=== PATIENT | female | born 1950 | race Caucasian/White ===

== ENCOUNTER 2016-08-20 20:04 | Emergency (ER) | payer MEDICARE, OTHER ==
[~2016-08-20] VITALS: Ht 167.6 cm; Wt 78.6 kg
[~2016-08-20 20:04] MED LIST: ASAEC PO; CIPR250T3 PO; CITA40TA PO; ESTR1TAB28 PO; PRI20 PO; PRO25 PO; TRAZ-146 PO
[2016-08-20 20:08] VITALS: BP 129/57; PULSE 75; RESP 16; O2SAT 94
--- NOTE | 2016-08-20 20:15 | ED.REPORT ---
HPI-General Illness Date of Service Aug 20, 2016 ED Provider: Luis Jernigan MD Pt is a 66 y/o female w/ a hx of DM presenting to the ED via EMS w/ her son due to an episode of near-syncope onset about 18:00 today. The patient felt lightheaded while bringing groceries into her house today and sat down and noticed that her BP was 75/60 with a heart rate of 110. She experienced associated nausea, dizziness, and bilateral hand numbness during the event. Pt denies CP, SOB, speech or vision changes, confusion, vomiting, palpitations, focal numbness or weakness. She has been having 5-6 episodes daily for 1 month and reports that she has had similar mild episodes infrequently for up to 15 years. These episodes normally last 15 minutes but the episode today lasted 45 minutes. She denies new medications. She is scheduled to see a steel cutter in August. The patient was admitted for a similar episode 2 years ago at which time a complete workup was reportedly negative. Nursing Notes Stated Complaint: NEAR SYNCOPE Chief Complaint: General Complaint Nursing Notes Reviewed: Yes Allergies: Coded Allergies: meperidine HCl (Verified Allergy, Severe, unknown, 10/30/10) phenazopyridine (Verified Adverse Reaction, Intermediate, vomiting, ) Uncoded Allergies: Phenazopyridine (Adverse Reaction, Unknown, 12/23/04) EMESIS Scheduled Aspirin-Expunged Drug, Do Not Renew! (Aspirin EC-Expunged Drug, Do Not Renew!) 325 Mg Tablet 325 MG PO HS Ciprofloxacin (Ciprofloxacin) 250 Mg Tablet 500 MG PO BID Citalopram-Expunged Drug, Do Not Renew! (Citalopram-Expunged Drug, Do Not Renew! ) 40 Mg Tablet 40 MG PO HS Estradiol-Expunged Drug, Do Not Renew! (Estrace-Expunged Drug, Do Not Renew!) 1 Mg Tablet 1 MG PO HS Medroxyprogesterone Acetate (Cycrin) 2.5 Mg Tab 2.5 MG PO HS Omeprazole-Expunged Drug, Do Not Renew! (Omeprazole-Expunged Drug, Do Not Renew! ) 20 Mg Capcr 20 MG PO HS Trazodone-Expunged Drug, Do Not Renew! (Trazodone-Expunged Drug, Do Not Renew!) 100 Mg Tablet 200 MG PO HS General Time Seen by MD: 20:09 Chief Complaint Other (near-syncope) Hx Obtained From: Patient Arrived By: Walk-in Sudden in Onset?: No Onset Occurred: 1 - 4 hours ago Symptom Duration: 31 - 45 minutes Severity: Current: No pain currently Severity: Maximum: No pain Similar Sx Previous: Yes Past Medical History Past Medical History Diabetes GERD Anxiety Past Surgical History Sinus x3 Ileostomy Laparotomy x2 Smoking History Former Smoker Social History Alcohol Use: 1-3 per day Drug Use: Denies drug use Ambulatory Status Independent Review of Systems Full Review of Systems Constitutional: Denies: Chills, Fever Respiratory: Denies: Shortness of breath Cardiovascular: Denies: Chest pain GI: Reports: Nausea, Denies: Vomiting Neurologic: Reports: Dizziness, Lightheaded, Numbness, Syncope (near), Denies: Confusion, Focal weakness, Seizure, Weakness Complete sys rev & neg: except as marked. Physical Exam Vital Signs Vital Signs Date Time Temp Pulse Resp B/P Pulse Ox O2 Delivery O2 Flow Rate FiO2 08/20/16 23:40 78 18 115/75 98 Room Air 08/20/16 22:31 82 105/56 08/20/16 22:31 83 105/64 08/20/16 22:31 76 112/59 08/20/16 21:13 75 14 117/65 98 Room Air 08/20/16 21:13 80 16 122/63 98 Room Air 08/20/16 21:13 81 16 95/49 96 Room Air 08/20/16 20:08 37.3 75 16 129/57 94 Room Air Initial VS: Reviewed, Vital signs normal Head / Eyes: Atraumatic, Normocephalic, PERRL ENT: Mucous membranes moist, Conjunctiva normal, No scleral icterus Neck: Supple, Full range of motion Respiratory: Breath sounds normal, Clear to auscultation, No respiratory distress Cardiovascular: Regular rate & rhythm, Heart sounds normal, Intact distal pulses Abdomen / GI: Soft, Non-tender Extremities: Vascular intact, Neuro intact, No swelling, No tenderness Skin: Warm, Dry, No cyanosis Psychiatric: Mood/affect normal, Behavior normal, Normal thought content General/Constitutional: Awake, Alert, No acute distress, Well appearing, Cooperative, Not toxic appearing Neurologic: Oriented X3, Speech NL, No motor deficits, No sensory deficits, CN II - XII intact, Cerebellar NL, Memory NL Interpretation & Diagnostics Lab Results Interpretation Result Diagram: 08/20/16202808/20/162028 Test 08/20/16 20:29 White Blood Count 7.8th/mm3 (3.8-10.1) Red Blood Count 4.47mil/mm3 (3.90-5.20) Hemoglobin 13.7g/dL (12.0-15.6) Hematocrit 40.8% (35.0-46.0) Mean Corpuscular Volume 91.3fL (81-100) Mean Corpuscular Hemoglobin 30.6pg (27.0-35.0) Mean Corpuscular Hemoglobin Concent 33.6% (32.0-37.0) Red Cell Distribution Width 13.0% (12.3-15.4) Platelet Count 230bil/L (150-400) Neutrophils (%) (Auto) 60.1% (40-74) Lymphocytes (%) (Auto) 25.7% (14-46) Monocytes (%) (Auto) 9.5% (4-12) Eosinophils (%) (Auto) 3.8% (0-5) Basophils (%) (Auto) 0.6% (0-3) Hold Purple Top Tube Received (Received) Hold Blue Top Tube Received (Received) Sodium Level 139mEq/L (134-144) Potassium Level 4.2mEq/L (3.5-5.2) Chloride Level 104mEq/L (97-108) Carbon Dioxide Level 16mmol/L (18-29) Blood Urea Nitrogen 19mg/dL (8-27) Creatinine 1.17mg/dL (0.57-1.00) Estimat Glomerular Filtration Rate 66mL/min (>59) Glucose Level 98mg/dL (60-99) Calcium Level 8.6mg/dL (8.5-10.1) Total Bilirubin 0.2mg/dL (0.0-1.2) Aspartate Amino Transf (AST/SGOT) 23U/L (0-50) Alanine Aminotransferase (ALT/SGPT) 18U/L (0-32) Alkaline Phosphatase 87U/L (25-165) Troponin T 0.010ug/L (0.0-0.011) Total Protein 6.8g/dL (6.4-8.4) Albumin 4.1g/dL (3.4-5.0) Hold Red Top Tube Received (Received) Hold [place] Top Tube Received (Received) ECG Interpretation Time: 21:20 Interpreted by: ED physician Normal ECG Interpretation: Normal ECG w/ rate of... (73), Normal rate, Normal sinus rhythm, No acute ischemic changes, Normal QRS, Normal axis, Normal intervals, Adequate tracing X-Ray Chest Interpretation Chest Xray Interpretation: IMPRESSION: Normal for age, source of presyncopal episode is not found. Dictated by: Babar Boateng M.D. on 08/20/2016 at 21:27 Approved by: Babar Boateng M.D. on 08/20/2016 at 21:28 View: Portable, 1 view Interpretation / Wet Read by: Interpret - Radiologist Re-Eval/Medical Decision Med Decision/Clinical Course 66-year-old female history of diabetes presenting with near syncopal episode. She reports she has 5 episodes of this a day for the past several months. She reports she has had these episodes for 15 years. Negative workups in the past. Today she got up and felt lightheaded and dizzy for approximate 45 minutes. She had no other associated symptoms. Her neurological exam is completely normal. Her labs are unremarkable. Troponins negative. Her vital signs with orthostatic hypotension. EKG unremarkable. She was given 1 L normal saline and her orthostatic hypotension resolved. Possibly due to dehydration even resolution with IV fluids. She is also on trazodone which can cause this. Given the resolution of symptoms, patient was discharged home with plan to follow up with primary doctor. Time of Eval: 23:14 Re-Evaluation/Progress Note: Pt rechecked. She is no longer orthostatic. Informed pt of plan for treatment. Pt understands and agrees with plan for treatment. F/U instructions and RTER warnings given. All questions addressed. Counseled Regarding: Diagnosis, Lab results, Need for follow-up, When/why to return to ED Discharge & Departure Primary Impression: Orthostatic hypotension Additional Impression: Near syncope Disposition: Home Discharge Condition All VS Reviewed: Yes Condition: Stable Patient Instructions: Syncope (ED) Additional Instructions: You were experiencing orthostatic hypotension. IV fluids relieved this which indicates that it may be caused by dehydration. It could also be a side-effect of Trazodone. Your labs, EKG, and chest x-ray today were normal. I recommend you call your primary care physician tomorrow to have an appointment set up to be seen in follow-up next week. Please discuss this visit and your medications. Return to the emergency department if you experience another severe episode of lightheadedness, chest pain, shortness of breath, vomiting, or other concerning symptoms. Referrals: Ira Jordan PA-C (PCP) Scribe Attestation Portions of this note were transcribed by Ancelmo Tolentino. I, Dr. Jernigan, personally performed the history, physical exam and medical decision-making; I reviewed and confirmed the accuracy of the information in the transcribed note. Signed by Robby Perdomo, 08/20/16 - 2029 copies to: Ira Jordan PA-C, Ben M MD Aug 20, 2016 20:15 ANCELMO TOLENTINO Aug 20, 2016 20:29
[2016-08-20] MEDS ORDERED: 0.9% Sodium Chloride 1,000 ML IV ONE ×2 (20:54→21:20)
[2016-08-20 21:04] LABS: BASOPHILS % (AUTO) 0.6 % (0-3); EOSINOPHILS % (AUTO) 3.8 % (0-5); MONOCYTES % (AUTO) 9.5 % (4-12); Mean Corpuscular Hemoglobin 30.6 pg (27.0-35.0); Mean Corpuscular Volume 91.3 fL (81-100); NEUTROPHILS % (AUTO) 60.1 % (40-74); Platelet Count 230 bil/L (150-400)
[2016-08-20 21:13] VITALS: BP_SYST 117; BP_SYST 122; BP_SYST 95; BP_DIAS 49; BP_DIAS 63; BP_DIAS 65; PULSE 75; PULSE 80; PULSE 81; RESP 14; RESP 16; O2SAT 96; O2SAT 98
[2016-08-20 21:16] LABS: TROPONIN T 0.01 ug/L (0.0-0.011)
--- NOTE | 2016-08-20 21:28 | DRSVH ---
PROCEDURE: X-RAY CHEST ONE VIEW, PORTABLE ([id number]) INDICATIONS: presyncope TECHNIQUE: One view of the chest was acquired. COMPARISON: [facility], CR, CHEST 2VW, 08/19/2012, 19:16. FINDINGS: Surgical changes and devices: None. Lungs and pleura: No pleural effusions or pneumothorax. Lungs are clear. Mediastinum: Mediastinal contours appear normal. Heart size is normal. Bones and chest wall: No suspicious bony lesions. Overlying soft tissues appear unremarkable. IMPRESSION: Normal for age, source of presyncopal episode is not found. Dictated by: Babar Boateng M.D. on 08/20/2016 at 21:27 Approved by: Babar Boateng M.D. on 08/20/2016 at 21:28
[2016-08-20] MEDS ORDERED: Ondansetron 2 mg/mL 2 mL Inj ONE (21:29)
[2016-08-20] MEDS ORDERED: Ondansetron 2 mg/mL 2 mL Inj IVPUSH PRN (21:40)
[2016-08-20 22:31] VITALS: BP_SYST 105; BP_SYST 112; BP_DIAS 56; BP_DIAS 59; BP_DIAS 64; PULSE 76; PULSE 82; PULSE 83
[2016-08-20 23:40] VITALS: BP 115/75; PULSE 78; RESP 18; O2SAT 98
== END 2016-08-20 23:41 | disposition home or self-care (01) ==
LOC: SED 20:04
DX: I95.1 Orthostatic hypotension (principal); R55 Syncope and collapse; E11.9 Type 2 diabetes mellitus without complications; K21.9 Gastro-esophageal reflux disease without esophagitis; Z87.891 Personal history of nicotine dependence; Z79.82 Long term (current) use of aspirin; Z88.5 Allergy status to narcotic agent; Z88.6 Allergy status to analgesic agent
CPT/HCPCS: 36415; 71010; 80053; 84484; 85025; 93005; 96361; 96374; 99285; J2405; J7030